=== PATIENT | male | born 2000 | race Caucasian/White ===

== ENCOUNTER 2023-07-16 14:30 | Outpatient (RCR) | payer OTHER, SELFPAY | END 2023-09-06 14:39 | disposition home or self-care (01) | PROVIDERS: Visit Provider Family Medicine | DX: M54.16 Radiculopathy, lumbar region (principal); M51.36 Other intervertebral disc degeneration, lumbar region; M54.50 Low back pain, unspecified; M62.81 Muscle weakness (generalized); Z51.89 Encounter for other specified aftercare | CPT/HCPCS: 97110; 97140; 97161 ==

== ENCOUNTER 2023-12-24 13:15 | Outpatient (CLI) | payer OTHER, SELFPAY | END 2023-12-24 13:16 | disposition home or self-care (01) | LOC: INJ CL 13:17 | PROVIDERS: Visit Provider Family Medicine | DX: M54.16 Radiculopathy, lumbar region (principal); M51.26 Other intervertebral disc displacement, lumbar region | CPT/HCPCS: 64483; 64484; J1100; Q9966 ==

== ENCOUNTER 2024-05-27 09:00 | Outpatient (RCR) | payer OTHER, SELFPAY | END 2024-09-01 07:38 | disposition home or self-care (01) | PROVIDERS: Visit Provider Physical Medicine & Rehabilitation | DX: M25.561 Pain in right knee (principal); M62.81 Muscle weakness (generalized); Z51.89 Encounter for other specified aftercare | CPT/HCPCS: 97110; 97140; 97161 ==